=== PATIENT | female | born 1950 | race Caucasian/White ===

== ENCOUNTER 2016-06-16 13:32 | Emergency (ER) | payer MEDICARE ==
[2016-06-16 13:45] VITALS: BP 98/66
--- NOTE | 2016-06-16 15:00 | UC ---
Talib Middleton Billy, scribed for Vivian Rayo DO on 06/16/16 at 1405 . Abdominal Pain Female HPI - HPI Summary HPI Summary: Patient is a 66 year-old female with a history of bariatric surgery coming [place] [facility] of diffuse abdominal pain for the last 5 days. The pain radiates to her flanks bilaterally. Patient states that her pain started after having cantaloupe on 06/12/16. She also reports having nausea and dry heaves. Pain and nausea is worse with food and certain movements, but she is able to tolerate fluids. She did not have any BM since the onset of her symptoms until yesterday, when she had 3x loose stools. The first of those stools was described as black and tarry, followed by a green stool, and then yellow. She also feels somewhat lightheaded recently and has subjective fevers and chills. Denies any urinary symptoms, chest pain, or SOB. Patient is living at home with people who are Hep C positive. - History of Current Complaint Chief Complaint: UCAbdominalPain Stated Complaint: GASTRIC COMPLAINT Time Seen by Provider: 06/16/16 13:49 Hx Obtained From: Patient Onset/Duration: Gradual Onset, Lasting Days, Still Present Timing: Constant Severity Initially: Moderate Severity Currently: Moderate Pain Intensity: 10 - with deep palpation Pain Scale Used: 0-10 Numeric Location: Diffuse Radiates: Yes Radiates to: Back - Radiates to the back with deep palpation of the epigastrium. Character: Cramping, Dull, Sharp Aggravating Factor(s): Food, Movement Alleviating Factor(s): Nothing Associated Signs and Symptoms: Positive: Fever - subjective fever/chills, Constipation, Blood in Stool - black, tarry stool, Nausea - and dry heaves. Negative: Chest Pain, Urinary Symptoms Allergies/Adverse Reactions: Allergies Allergy/AdvReac Type Severity Reaction Status Date / Time Penicillins Allergy Unknown Verified 06/16/16 13:46 Reaction Details Sulfa Antibiotics Allergy Unknown Verified 06/16/16 13:46 Reaction Details Home Medications: Home Medications Acetaminophen 2 tab PO Q4HR 06/16/16 [History Confirmed 06/16/16] PMH/Surg Hx/FS Hx/Imm Hx Previously Healthy: Yes Endocrine History Of: Denies: Diabetes Cardiovascular History Of: Denies: Hypertension, Pacemaker/ICD Cancer History Of: Denies: Breast Cancer - Surgical History Surgical History: Yes Surgery Procedure, Year, and Place: TONSILS,APPENDIX,TOTAL HYSTERECTOMY, GALLBLADDER,BARIATRIC GASTRIC BYPASS - Family History Known Family History: Positive: Cardiac Disease Family History: Mother with breast cancer. Father had asthma, emphysema, and heart failure. - Social History Lives: With Family Alcohol Use: None Substance Use Type: None Smoking Status (MU): Never Smoked Tobacco Household Exposure Type: Cigarettes Review of Systems Constitutional: Fever, Chills Skin: Negative Eyes: Negative ENT: Negative Respiratory: Negative Cardiovascular: Negative Gastrointestinal: Abdominal Pain, Other - nausea, dry heaves; black, tarry stool Genitourinary: Negative Motor: Negative Neurovascular: Negative Musculoskeletal: Negative Neurological: Negative Psychological: Negative All Other Systems Reviewed And Are Negative: Yes Physical Exam Triage Information Reviewed: Yes Appearance: Well-Appearing, No Pain Distress, Well-Nourished Vital Signs: Initial Vital Signs Temp 98.1 F 06/16/16 13:37 Pulse 66 06/16/16 13:37 Resp 16 06/16/16 13:37 BP 98/66 06/16/16 13:37 Pulse Ox 98 06/16/16 13:37 Vital Signs Reviewed: Yes Eyes: Positive: Conjunctiva Clear. Negative: Discharge ENT: Positive: Normal ENT inspection Neck: Positive: Supple, Nontender Respiratory: Positive: Lungs clear, Normal breath sounds, No respiratory distress, No accessory muscle use Cardiovascular: Positive: RRR, No Murmur Abdomen Description: Positive: Soft, CVA Tenderness (R), Other: - Diffuse tenderness of the abdomen, right worse than left, but worst of all in the epigastrium and radiates to the back with deep palpation.. Negative: CVA Tenderness (L) Bowel Sounds: Positive: Present Musculoskeletal Exam: Normal Musculoskeletal: Positive: Strength Intact Neurological Exam: Normal Neurological: Positive: Alert Psychological Exam: Normal Psychological: Positive: Age Appropriate Behavior Skin Exam: Normal, Other - Warm, dry skin. Abd Pain Female Course/Dx - Differential Dx/Diagnosis Differential Diagnosis: Bowel Obstruction, Pancreatitis, Other - metabolic abnormality, gastroenteritis, food poisoning Provider Diagnoses: abd pain of unknown anand Discharge - Discharge Plan Condition: Stable Disposition: AGAINST MEDICAL ADVICE The documentation as recorded by the Talib pichardo Billy accurately reflects the service I personally performed and the decisions made by Girma mejia Michelle A, DO.
== END 2016-06-16 14:53 | disposition left against medical advice (07) ==
LOC: UCEAST 13:32
DX: R10.84 Generalized abdominal pain (principal); R50.9 Fever, unspecified; K59.00 Constipation, unspecified; K92.1 Melena; R11.0 Nausea; Z98.84 Bariatric surgery status; Z90.49 Acquired absence of other specified parts of digestive tract; Z88.0 Allergy status to penicillin; Z88.2 Allergy status to sulfonamides; Z77.22 Contact with and (suspected) exposure to environmental tobacco smoke (acute) (chronic)
CPT/HCPCS: 81003; 99212; G0463

== ENCOUNTER 2016-06-16 15:06 | Emergency (ER) | payer MEDICARE ==
[2016-06-16 19:46] LABS: Hematocrit 40 % (35-47); Hemoglobin 12.9 g/dl (12.0-16.0); Mean Corpuscular HGB Conc 32 g/dl (31-36); Mean Corpuscular Hemoglobin 29 pg (27-31); Mean Corpuscular Volume 89 fL (80-97); Mean Platelet Volume 9 um3 (7.4-10.4); Red Blood Count 4.49 10^6/ul (4.0-5.4); Red Cell Distribution Width 14 % (10.5-15); White Blood Count 5.9 10^3/ul (3.5-10.8)
[2016-06-16 19:56] LABS: Albumin 3.6 g/dL (3.2-5.2); BUN/Creatinine Ratio 25.4 (8-20); C Reactive Protein 1.53 mg/L (< 5.00); Calcium 8.6 mg/dL (8.6-10.3); EGFR African American 130.4 (>60); EGFR Non-African American 101.4 (>60); Globulin 2.1 g/dL (2-4); Potassium 3.2 mmol/L (3.5-5.0); Total Bilirubin 0.6 mg/dL (0.2-1.0); Total Protein 5.7 g/dL (6.4-8.9)
[2016-06-16] MEDS ORDERED: Iohexol 300* (CONTRAST) 10 ML SDV IV ONE (20:22)
--- NOTE | 2016-06-16 22:28 | RAD ---
INDICATION: Mid and lower abdominal pain with radiation to the back. Post appendectomy, hysterectomy, cholecystectomy, gastric bypass. COMPARISON: July 29, 2004 CT. TECHNIQUE: Multidetector CT images were obtained from the lung bases to the ischial tuberosities with 77 mL Omnipaque 300 IV and oral contrast. Multiplanar reformation. REPORT: Small dependent pleural effusions and mild dependent atelectasis. Diffuse fatty infiltration of the liver. No focal hepatic lesions evident. Artifactual filling defect in the central portal veins due to early phase of contrast enhancement. Post cholecystectomy. Negative for biliary dilatation. Unremarkable pancreas. Low suspicion 5 mm subcapsular hypodensity at the spleen most consistent with a benign cyst or potentially a small splenic infarct. Postsurgical change of Zandra-en-Y gastric bypass. Enteric contrast extends to the rectum. No suspicious CT finding of the upper GI, small bowel, or colon. Negative for ascites, free air, hernias. Normal adrenal glands. Unremarkable kidneys with symmetric nephrograms and pyelograms. Unremarkable ureters and distended urinary bladder. Multiple pelvic phleboliths. Post hysterectomy. Unremarkable adnexal regions. Multiple upper abdominal small bowel mesenteric lymph nodes visualized measuring up to 7 mm short axis diameter. In addition the small bowel mesentery is mildly increased in density throughout. Normal diameter abdominal aorta and iliac arteries with mild calcific plaque. Normal variant duplicated inferior vena cava below the level of the renal vessels. Negative for suspicious osseous lesions. IMPRESSION: 1. Fatty infiltration of the liver. 2. Post cholecystectomy. 3. Post Zandra-en-Y gastric bypass. Negative for bowel obstruction or other acute abnormality of the bowel. 4. Nonspecific new multiple subcentimeter short axis lymph nodes and edema in the small bowel mesentery. Consider mesenteric panniculitis or possibly early lymphoma. 5. Negative for obstructive uropathy. 6. Post-hysterectomy. No suspicious adnexal region lesions evident7. 7. Bilat. small dependent pleural effusions.
[2016-06-16] MEDS ORDERED: HYDROmorphone* 1 MG/ML 1 ML SYR IV ONE (23:02)
[2016-06-16] MEDS ORDERED: Ondansetron INJ* 2 MG/ML VIAL IV ONE (23:02)
[2016-06-16] MEDS ORDERED: Al Hydrox/Mg Hydrox/Simet LIQ* 30 ML UDC PO ONE (23:26)
[2016-06-16] MEDS ORDERED: Lidocaine 2% VISCOUS* 15 ML UDC PO ONE (23:26)
[2016-06-16] MEDS ORDERED: HYDROcodone/ACETAMIN 5-325 MG* 1 TAB PO ONE (23:45)
[2016-06-17 00:02] VITALS: BP 150/75
--- NOTE | 2016-06-19 13:49 | ED ---
Vikas Middleton Benjamin, scribed for Nam Mario MD on 06/16/16 at 2037 . Abdominal Pain/Female - HPI Summary HPI Summary: 66yo female transferred from for abdominal pain since . On , pt had food, which pt suspects might have gone bad. 15-20 minutes after eating, pt started to have diffuse abdominal pain. Since then, pt has been in pain as soon as she eats, with dry heaves and unable to pass gas. Since then, pt had watery BM, which were at first black, then olive green, and now yellow in color. Hx of gastric bypass on 2003. - History of Current Complaint Chief Complaint: EDAbdPain Stated Complaint: ABD AND BACK PAIN-[facility] XFER Time Seen by Provider: 06/16/16 19:18 Hx Obtained From: Patient Onset/Duration: Gradual Onset, Lasting Days, Still Present Timing: Constant Severity Initially: Moderate Severity Currently: Moderate Pain Intensity: 9 Pain Scale Used: 0-10 Numeric Location: Diffuse Radiates: No Aggravating Factor(s): Food Alleviating Factor(s): Nothing Associated Signs and Symptoms: Positive: Nausea, Diarrhea, Other: - dry heaves, gassy stomach Allergies/Adverse Reactions: Allergies Allergy/AdvReac Type Severity Reaction Status Date / Time Hydromorphone [From Dilaudid] Allergy Agitation Verified 06/19/16 11:34 Penicillins Allergy Unknown Verified 06/16/16 15:12 Reaction Details Sulfa Antibiotics Allergy Unknown Verified 06/16/16 15:12 Reaction Details PMH/Surg Hx/FS Hx/Imm Hx Endocrine/Hematology History: Denies: Hx Diabetes Cardiovascular History: Denies: Hx Hypertension, Hx Pacemaker/ICD Musculoskeletal History: Denies: Hx Osteoporosis Sensory History: Denies: Hx Hearing Aid Psychiatric History: Denies: Hx Panic Disorder - Cancer History Hx Chemotherapy: No Hx Radiation Therapy: No - Surgical History Surgery Procedure, Year, and Place: TONSILS,APPENDIX,TOTAL HYSTERECTOMY, GALLBLADDER,BARIATRIC GASTRIC BYPASS Infectious Disease History: No Infectious Disease History: Denies: History Other Infectious Disease, Traveled Outside the [place] in Last 30 Days - Family History Known Family History: Positive: None, Cardiac Disease Family History: Mother with breast cancer. Father had asthma, emphysema, and heart failure. - Social History Occupation: Employed Full-time Lives: With Family Alcohol Use: None Substance Use Type: Reports: None Smoking Status (MU): Never Smoked Tobacco Review of Systems Constitutional: Negative Eyes: Negative ENT: Negative Cardiovascular: Negative Respiratory: Negative Positive: Abdominal Pain, Vomiting, Nausea Genitourinary: Negative Musculoskeletal: Negative Skin: Negative Neurological: Negative Psychological: Normal All Other Systems Reviewed And Are Negative: Yes Physical Exam Triage Information Reviewed: Yes Vital Signs On Initial Exam: Initial Vitals Temp Pulse Resp BP Pulse Ox 98.1 F 64 16 108/63 98 06/16/16 15:12 06/16/16 15:12 06/16/16 15:12 06/16/16 15:12 06/16/16 15:12 Vital Signs Reviewed: Yes Appearance: Positive: Well-Appearing, No Pain Distress, Well-Nourished Skin: Positive: Warm, Skin Color Reflects Adequate Perfusion, Dry Head/Face: Positive: Normal Head/Face Inspection Eyes: Positive: Normal ENT: Positive: Normal ENT inspection Neck: Positive: Supple, Nontender Respiratory/Lung Sounds: Positive: Clear to Auscultation, Breath Sounds Present Cardiovascular: Positive: RRR, Pulses are Symmetrical in both Upper and Lower Extremities Abdomen Description: Positive: Nontender, Soft Bowel Sounds: Positive: Present Musculoskeletal: Positive: Normal, Strength/ROM Intact Neurological: Positive: Sensory/Motor Intact, Alert, Oriented to Person Place, Time, CN Intact II-III Psychiatric: Positive: Affect/Mood Appropriate - Tressa Coma Scale Coma Scale Total: 15 Diagnostics - Vital Signs Vital Signs Temp Pulse Resp BP Pulse Ox 06/16/16 17:50 63 16 114/65 96 06/16/16 16:42 97.8 F 77 16 103/65 98 06/16/16 15:12 98.1 F 64 16 108/63 98 - Laboratory Lab Results: Lab Results 06/16/16 06/16/16 Range/Units 17:15 17:15 WBC 5.9 (3.5-10.8) 10^3/ul RBC 4.49 (4.0-5.4) 10^6/ul Hgb 12.9 (12.0-16.0) g/dl Hct 40 (35-47) % MCV 89 (80-97) fL MCH 29 (27-31) pg MCHC 32 (31-36) g/dl RDW 14 (10.5-15) % Plt Count 173 (150-450) 10^3/ul MPV 9 (7.4-10.4) um3 Neut % (Auto) 54.3 (38-83) % Lymph % (Auto) 35.8 (25-47) % Ellis % (Auto) 9.0 (1-9) % Eos % (Auto) 0.6 (0-6) % Baso % (Auto) 0.3 (0-2) % Absolute Neuts (auto) 3.2 (1.5-7.7) 10^3/ul Absolute Lymphs (auto) 2.1 (1.0-4.8) 10^3/ul Absolute Monos (auto) 0.5 (0-0.8) 10^3/ul Absolute Eos (auto) 0 (0-0.6) 10^3/ul Absolute Basos (auto) 0 (0-0.2) 10^3/ul Absolute Nucleated RBC 0.01 10^3/ul Nucleated RBC % 0.1 Sodium 140 (133-145) mmol/L Potassium 3.2 L (3.5-5.0) mmol/L Chloride 104 (101-111) mmol/L Carbon Dioxide 30 (22-32) mmol/L Anion Gap 6 (2-11) mmol/L BUN 15 (6-24) mg/dL Creatinine 0.59 (0.51-0.95) mg/dL Est GFR ( Amer) 130.4 (>60) Est GFR (Non-Af Amer) 101.4 (>60) BUN/Creatinine Ratio 25.4 H (8-20) Glucose 89 (70-100) mg/dL Calcium 8.6 (8.6-10.3) mg/dL Total Bilirubin 0.60 (0.2-1.0) mg/dL AST 26 (13-39) U/L ALT 30 (7-52) U/L Alkaline Phosphatase 62 (34-104) U/L C-Reactive Protein 1.53 (< 5.00) mg/L Total Protein 5.7 L (6.4-8.9) g/dL Albumin 3.6 (3.2-5.2) g/dL Globulin 2.1 (2-4) g/dL Albumin/Globulin Ratio 1.7 (1-3) Lipase 27 (11.0-82.0) U/L Result Diagrams: 06/16/16 17:15 06/16/16 17:15 Lab Statement: Any lab studies that have been ordered have been reviewed, and results considered in the medical decision making process. - CT A/P CTW CT Interpretation: Positive (See Comments) - IMPRESSION: 1. Fatty infiltration of the liver. 2. Post cholecystectomy. 3. Post Zandra-en-Y gastric bypass. Negative for bowel obstruction or other acute abnormality of the bowel. 4. Nonspecific new multiple subcentimeter short axis lymph nodes and edema in the small bowel mesentery. Consider mesenteric panniculitis or possibly early lymphoma. 5. Negative for obstructive uropathy. 6. Post-hysterectomy. No suspicious adnexal region lesions evident7. 7. Bilat. small dependent pleural effusions. CT Interpretation Completed By: Radiologist Abdominal Pain Fem Course/Dx - Course Course Of Treatment: Ms. Centeno presented with a couple days of diffuse abdominal pain especially after eating. She is a decade S/P Zandra-en-Y but has not had any problems previously. Labs were normal and a CT showed mesenteric panniculitis. I was about to D/C her when she began to experience worse pain ( she had just eaten) and I ordered some additional pain medications. - Diagnoses Provider Diagnoses: Mesenteric panniculitis - Provider Notifications Discussed Care Of Patient With: Dr. De Anda at change of shift Discharge - Discharge Plan Condition: Stable Disposition: HOME Prescriptions: HYDROcodone/ACETAMIN 5-325 MG* [Cornucopia 5-325 TAB*] 1 tab PO Q6H PRN #20 tab MDD 4 PRN Reason: Pain Patient Education Materials: Abdominal Pain (ED) Referrals: Joann Boo MD [Primary Care Provider] - Teo Valencia MD [Medical Doctor] - The documentation as recorded by the Vikas pichardo Benjamin accurately reflects the service I personally performed and the decisions made by me, Nam Mario MD.
== END 2016-06-17 00:45 | disposition home or self-care (01) ==
LOC: ED 15:06
DX: K65.4 Sclerosing mesenteritis (principal); R19.7 Diarrhea, unspecified; R11.2 Nausea with vomiting, unspecified; R10.9 Unspecified abdominal pain
CPT/HCPCS: 36415; 74177; 80053; 83605; 83690; 85025; 86140; 96374; 96375; 99283; A9270-GY; J1170; J2405; Q9967

== ENCOUNTER 2016-06-19 13:00 | Observation (INO) | payer MEDICARE ==
[~2016-06-19 13:00] MED LIST: Bupivacaine 0.5% W/EPI SDV* 30 ML VIAL ONE; Clindamycin 900 MG IVPREMIX(* 900 MG/50 ML SDV IV ONE; Dexamethasone IV* 4 MG/ML 1 ML (4 MG) ONE; Lidocaine 2% PF* 5 ML VIAL ONE; Ondansetron INJ* 2 MG/ML VIAL ONE; Propofol* 10 MG/ML 20 ML BTL IV PUSH ONE; Scopolamine 1.5 mg* PATCH ONE; Succinylcholine* 20 MG/ML 10 ML VIAL ONE; fentaNYL* 50 MCG/ML 2 ML VIAL (100 MCG VIAL) ONE
[2016-06-19] MEDS ORDERED: Atracurium* 10 MG/ML 10 ML VIAL ONE (13:52)
[2016-06-19] MEDS ORDERED: DiMENhydriNATE IV* 50 MG/ML VIAL IV PUSH PRN (14:00)
[2016-06-19] MEDS ORDERED: fentaNYL* 50 MCG/ML 2 ML VIAL (100 MCG VIAL) IV PRN (14:00)
[2016-06-19] MEDS ORDERED: Morphine INJ* 2 MG/ML 1 ML SYRINGE IV PRN (14:00)
[2016-06-19] MEDS ORDERED: Ketorolac INJ* 30 MG/ML 1 ML VIAL IV PRN (14:00)
[2016-06-19] MEDS ORDERED: Morphine INJ* 10 MG/ML 1 ML SYRINGE ONE (14:38)
[2016-06-19] MEDS ORDERED: Edrophonium Chloride* 10 MG/ML 15 ML VIAL ONE (15:12)
[2016-06-19] MEDS ORDERED: Atropine 1MG/ML INJ* 1 ML VIAL ONE (15:12)
[2016-06-19] MEDS ORDERED: Ondansetron INJ* 2 MG/ML VIAL IV PRN (16:10)
--- NOTE | 2016-06-19 16:37 | SURGPN ---
Brief Operative Note - Surgery Procedures: PREOOP DX: VOLVULUS, INTERNAL HERNIA, S/P LRYGB POSTOP DX: SAME AND COLONIC MALROTATION PROC: DX LAP;EXLAP; REDUCTION AND REPAIR OF INTERNAL HERNIA AND R COLON PEXY SURG: MECENAS ASSIST: NONE ANES: GET; BYLEBYL EBL: 150 ML IVF: 2.2 L LR SPEC: NONE DRAIN/COMPL: NONE COND: STABLE, EXTUBATED; TO PACU FINDINGS: INTERNAL HERNIA AT THE JEJUNOJEJUNOSTOMY WITH R COLON HERNIATION ALONG WITH SMALL BOWEL. MARLEN LIMB ORIENTED TO LEFT SIDE OF ABDOMEN.
[2016-06-19] MEDS ORDERED: Ketorolac INJ* 30 MG/ML 1 ML VIAL ONE (16:49)
[2016-06-19] MEDS ORDERED: Morphine PCA ADULT* 5 MG/ML 30 ML PCA SCH (17:00)
[2016-06-19] MEDS ORDERED: Morphine PCA ADULT* 5 MG/ML 30 ML ONE (18:00)
[2016-06-19] MEDS ORDERED: NS 0.9% 1000 ML* 1,000 ML IV ONE (20:15)
[2016-06-19 22:49] LABS: Hematocrit 32 % (35-47); Hemoglobin 10.2 g/dl (12.0-16.0)
[2016-06-19] MEDS: Ketorolac INJ* 15 MG/ML 1 ML VIAL IV PUSH SCH (23:27)
[2016-06-20] MEDS ORDERED: NS 0.9% 1000 ML* 1,000 ML IV ONE ×3 (03:15→14:46)
[2016-06-20 04:55] LABS: Hematocrit 28 % (35-47); Hemoglobin 9.1 g/dl (12.0-16.0); Mean Corpuscular HGB Conc 33 g/dl (31-36); Mean Corpuscular Hemoglobin 29 pg (27-31); Mean Corpuscular Volume 89 fL (80-97); Mean Platelet Volume 8 um3 (7.4-10.4); Red Blood Count 3.14 10^6/ul (4.0-5.4); Red Cell Distribution Width 14 % (10.5-15); White Blood Count 12.7 10^3/ul (3.5-10.8)
[2016-06-20 04:59] LABS: Add Diff/Slide Review? Slide Review Added; Comments Flag Yes
[2016-06-20 05:13] LABS: BUN/Creatinine Ratio 32.7 (8-20); Calcium 7.3 mg/dL (8.6-10.3); EGFR African American 150.8 (>60); EGFR Non-African American 117.3 (>60); Potassium 3.9 mmol/L (3.5-5.0)
[2016-06-20] MEDS: Ketorolac INJ* 15 MG/ML 1 ML VIAL IV PUSH SCH ×4 (05:24→23:17)
[2016-06-20 09:20] LABS: Albumin 2.6 g/dL (3.2-5.2); Calcium 7.3 mg/dL (8.6-10.3); EGFR African American 157.8 (>60); EGFR Non-African American 122.7 (>60); Globulin 1.4 g/dL (2-4); Magnesium 1.6 mg/dL (1.9-2.7); Phosphorus 3.8 mg/dL (2.5-5.0); Potassium 3.9 mmol/L (3.5-5.0); Total Bilirubin 0.6 mg/dL (0.2-1.0)
[2016-06-20] MEDS ORDERED: oxyCODONE/Acetamin 5/325 MG* TAB PO PRN (11:22)
[2016-06-20] MEDS ORDERED: HYDROmorphone* 1 MG/ML 1 ML SYR IV SLOW PU PRN (11:22)
[2016-06-20] MEDS ORDERED: Magnesium Sulfate 2 GM IV* 2 GM/50 ML BAG IVPB ONE (11:23)
--- NOTE | 2016-06-20 11:32 | SURGPN ---
Subjective - Introduction -: Reports doing much better today, denies any pain. Has not used her ELECTRO TECH at all. Tolerating clear liquids well. No N/V, fever or chills. No flatus yet. - Medications -: Active Medications Generic Name Dose Route Start Last Admin Trade Name Maria Isabel PRN Reason Stop Dose Admin Hydromorphone HCl 0.5 mg 06/20/16 11:22 Dilaudid Iv* IV SLOW PU Q4H PRN PAIN Lactated Ringer's 1,000 mls @ 150 mls/hr 06/19/16 17:00 06/20/16 10:29 Lactated Ringers 1000 Ml Bag* IV 150 mls/hr .per rate MALINDA Administration Morphine Sulfate 30 mls @ 0 mls/hr 06/19/16 17:00 Morphine Cloth Spreader [employer]ing Adult* 5 Mg/Ml ELECTRO TECH .change Q24H MALINDA Protocol Per Protocol Magnesium Sulfate 2 gm in 50 mls @ 50 mls/hr 06/20/16 11:23 Magnesium Sulfate 2 Gm Iv* IVPB 06/20/16 12:22 ONCE ONE Ketorolac Tromethamine 15 mg 06/19/16 23:00 06/20/16 10:29 Toradol Inj* IV PUSH 15 mg Q6H MALINDA Administration Ondansetron HCl 4 mg 06/19/16 16:10 Zofran Inj* IV Q4H PRN NAUSEA/VOMITING Oxycodone/Acetaminophen 1 tab 06/20/16 11:22 Percocet 5/325 Tab* PO Q4H PRN PAIN Objective - Objective -: Awake and alert, comfortable on bed, in NAD. - Intake and Output -: Intake & Output 06/18/16 06/19/16 06/20/16 06/21/16 06:59 06:59 06:59 06:59 Intake Total 6630 997 Output Total 575 Balance 6055 997 Weight 126 lb Intake: IV Fluids 6480 997 LR 3480 997 NS bolus 3000 Oral 150 Output: Eason 425 Estimated Blood Loss 150 Surgical Physical Exam - Comments -: VSS, afebrile Abdomen soft, NT, ND. Dressing clean and dry. No guarding or rebound. Ext no edema Labs noted, hypomagnesemia Assessment and Plan - Assessment -: A 66 y/o female, s/p exploratory laparotomy with repair of internal hernia, POD# 1, doing very well. - Plan Additional Comments: D/C ELECTRO TECH Ambulate as tolerated. Await bowel function. Hypomagnesemia, replace Mg Check labs tomorrow. Advance to full liquid diet later today.
--- NOTE | 2016-06-20 12:01 | OP ---
DATE OF OPERATION: 06/19/16 - ROOM #340 DATE OF : 46 SURGEON: Teo Valencia MD ADVOCACY DIRECTOR: None. ANESTHESIOLOGIST: Dr. Bonilla. ANESTHESIA: General endotracheal. PRE-OP DIAGNOSIS: Volvulus with internal hernia status post laparoscopic Zandra- en-Y gastric bypass. POST-OP DIAGNOSES: Volvulus with internal hernia status post laparoscopic Zandra- en-Y gastric bypass and colonic malrotation. OPERATIVE PROCEDURE: Diagnostic laparoscopy, exploratory laparotomy, reduction repair of internal hernia with right colon pexy. ESTIMATED BLOOD LOSS: 150 mL. IV FLUIDS: 2.2 L of crystalloid. SPECIMEN: None. DRAINS: None. COMPLICATIONS: None. COUNTS: Instrument, needle, and sponge counts correct. DESCRIPTION OF PROCEDURE: The patient was brought to the operating room, placed on the table supine. Sequential compression devices were placed on both lower extremities. General anesthesia was administered. Her abdomen was prepped and draped in the usual sterile fashion. She received appropriate intravenous antibiotics. A time-out was performed. Local anesthetic was infiltrated into the skin and soft tissue prior to making each incision. A transumbilical access using the Veress needle was performed to insufflate carbon dioxide to a pressure of 15 mmHg. Subsequently, a 5-mm optical trocar was placed in the left upper quadrant and under direct visualization, 5-mm trocars were placed in the right upper quadrant and infraumbilical region. Inspection with laparoscope revealed adhesions of omentum to the anterior abdominal wall. Lysis of adhesions was performed using a sharp and blunt dissection. After freeing the omentum, inspection revealed evidence of internal herniation of the small bowel. It was difficult to assess exactly where the herniation was occurring and it appeared that the right colon was herniated to the left side of the abdomen. Upon multiple attempts to reduce the intestinal herniation without success, it was deemed dangerous to pursue it further and therefore laparotomy was performed. Midline laparotomy was created and retractor was placed. Omentum was freed additionally from anterior abdominal wall and from the falciform ligament. Ligation of bleeding portions of the omentum and cauterization was used to achieve hemostasis there. There appeared to be herniation of the small bowel around the Zandra limb with orientation of the Zandra limb on the left side of the abdomen. The bowel was reduced; however, there appeared to be herniation through a jejunojejunostomy, a mesenteric defect as well, and after reducing this, the bowel was finally re-oriented. It was noted that the right colon was free with tendency for the right colon to migrate to the left side of the abdomen. The small bowel was run from the ileocecal valve proximally to the jejunojejunostomy and the orientation of the jejunojejunostomy was such that the biliopancreatic limb was on the right side of the abdomen and that the Zandra limb was oriented on the left side of the abdomen. There was a hernia defect as noted at the jejunojejunostomy site and space between the Zandra limb mesentery and transverse colon on the left side. The bowel did appear to be viable. There was a serosal tear noted on the left side of the Zandra limb which was oversewn with 2-0 silk. The pexy of the biliopancreatic limb to the Zandra limb itself was performed with interrupted 2-0 silk, proceeding with successful closure of the retro-alimentary limb space. Additionally, interrupted 3-0 silk' s were used to close the jejunojejunostomy defect. The pexy of the right colon was performed with interrupted 2-0 silk's reducing the mobility of the right colon by pexy to the lateral parietal peritoneum and putting sequentials down to the right pelvis. The appendix appeared to be surgically absent. The inspection of the ascending, transverse, and descending colon revealed them all to be viable. There was bleeding still from the omentum which was subsequently controlled with oversewing with 3-0 silk's and with cautery. Copious lavage of the abdomen was performed until clear, and once hemostasis was assured, the midline laparotomy was closed with #1 Polysorb running. The wound was irrigated. Hemostasis was assured in the subcutaneous tissues and the skin incisions were closed with reji and dressings applied. The patient tolerated the procedure well. She was extubated uneventfully. She was transferred to the recovery room in stable condition. CC: Joann Boo MD* [id number]/[facility] #: [id number] MTDD
[2016-06-21] MEDS: Ketorolac INJ* 15 MG/ML 1 ML VIAL IV PUSH SCH ×4 (04:55→22:55)
[2016-06-21 07:26] LABS: Hematocrit 25 % (35-47); Hemoglobin 8.2 g/dl (12.0-16.0); Mean Corpuscular HGB Conc 33 g/dl (31-36); Mean Corpuscular Hemoglobin 29 pg (27-31); Mean Corpuscular Volume 89 fL (80-97); Mean Platelet Volume 9 um3 (7.4-10.4); Red Blood Count 2.85 10^6/ul (4.0-5.4); Red Cell Distribution Width 15 % (10.5-15); White Blood Count 7.8 10^3/ul (3.5-10.8)
[2016-06-21 07:38] LABS: Calcium 7.4 mg/dL (8.6-10.3); EGFR African American 157.8 (>60); EGFR Non-African American 122.7 (>60); Potassium 3.2 mmol/L (3.5-5.0)
--- NOTE | 2016-06-21 08:31 | PN ---
Progress Note - Progress Note Note: Surgery Ms. Centeno reports she is tolerating full liquids. She has passed flatus, no BM yet. She denies pain. Vital Signs 06/20/16 06/20/16 06/20/16 08:34 08:35 09:00 Temperature Pulse Rate Respiratory 16 Rate Blood Pressure 75/40 79/43 (mmHg) O2 Sat by Pulse 98 Oximetry 06/20/16 06/20/16 06/20/16 11:00 11:22 15:24 Temperature 98.2 F 98.6 F Pulse Rate 64 64 Respiratory 16 16 18 Rate Blood Pressure 73/42 77/41 (mmHg) O2 Sat by Pulse 97 98 93 Oximetry 06/20/16 06/20/16 06/20/16 16:00 19:20 19:22 Temperature Pulse Rate Respiratory 14 14 Rate Blood Pressure (mmHg) O2 Sat by Pulse 93 Oximetry 06/20/16 06/20/16 06/21/16 19:54 23:25 03:37 Temperature 99.7 F 98.4 F 98.1 F Pulse Rate 70 67 64 Respiratory 17 17 17 Rate Blood Pressure 82/44 77/44 91/43 (mmHg) O2 Sat by Pulse 93 94 92 Oximetry Abd: good BS, soft, non-tender except near incision. INcision: Clean and dry, reji intact. Intake & Output 06/20/16 06/21/16 06/21/16 22:59 06:59 14:59 Intake Total 4920 Output Total 250 250 Balance 4670 -250 Intake: IV Fluids 3930 LR 1020 NS bolus 950 Oral 990 Output: Eason 250 250 Laboratory Results - last 24 hr 06/20/16 06/21/16 06/21/16 04:42 07:05 07:05 WBC 7.8 RBC 2.85 L Hgb 8.2 L Hct 25 L MCV 89 MCH 29 MCHC 33 RDW 15 Plt Count 154 MPV 9 Neut % (Auto) 70.9 Lymph % (Auto) 21.4 L [place] % (Auto) 7.0 Eos % (Auto) 0.3 Baso % (Auto) 0.4 Absolute Neuts (auto) 5.5 Absolute Lymphs (auto) 1.7 Absolute Monos (auto) 0.5 Absolute Eos (auto) 0 Absolute Basos (auto) 0 Absolute Nucleated RBC 0 Nucleated RBC % 0 Sodium 141 142 Potassium 3.9 3.2 L Chloride 108 113 H Carbon Dioxide 27 27 Anion Gap 6 2 BUN 18 9 Creatinine 0.50 L 0.50 L Est GFR ( Amer) 157.8 157.8 Est GFR (Non-Af Amer) 122.7 122.7 BUN/Creatinine Ratio 36.0 H 18.0 Glucose 114 H 91 Calcium 7.3 L 7.4 L Phosphorus 3.8 Magnesium 1.6 L 2.0 Total Bilirubin 0.60 AST 33 ALT 30 Alkaline Phosphatase 44 Total Protein 4.0 L Albumin 2.6 L Globulin 1.4 L Albumin/Globulin Ratio 1.9 Prealbumin 12 L Triglycerides 50 Cholesterol 99 A/P: POD#2 s/p lap repair internal hernia, doing well, will advance diet, encourage ambulation. Will replete K+.
[2016-06-21] MEDS: Potassium Chloride LIQUID* 20 MEQ PACKET PO SCH (09:23)
[2016-06-22] MEDS: Ketorolac INJ* 15 MG/ML 1 ML VIAL IV PUSH SCH ×2 (04:25→11:14)
[2016-06-22 08:40] VITALS: BP 105/58
[2016-06-22] MEDS: Potassium Chloride LIQUID* 20 MEQ PACKET PO SCH (09:10)
--- NOTE | 2016-06-22 10:35 | PN ---
Progress Note - Progress Note Note: Surgery Ms. Centeno feels good enough to go home, and is anxious to be home. She has ambulated and tolerated diet. Vital Signs 06/21/16 06/21/16 06/21/16 12:04 16:00 16:25 Temperature 98.5 F 98.2 F Pulse Rate 75 67 Respiratory 18 17 Rate Blood Pressure 99/55 99/56 (mmHg) O2 Sat by Pulse 96 98 98 Oximetry 06/21/16 06/21/16 06/21/16 18:12 19:37 20:05 Temperature 98.3 F Pulse Rate 77 Respiratory 16 19 Rate Blood Pressure 86/49 (mmHg) O2 Sat by Pulse 98 98 98 Oximetry 06/22/16 06/22/16 06/22/16 00:41 03:29 04:31 Temperature 98.0 F 98.0 F Pulse Rate 70 60 Respiratory 18 16 Rate Blood Pressure 89/52 81/49 96/52 (mmHg) O2 Sat by Pulse 94 96 Oximetry 06/22/16 06/22/16 06/22/16 07:51 08:00 08:35 Temperature 98.0 F Pulse Rate 64 Respiratory 18 18 Rate Blood Pressure 98/52 105/58 (mmHg) O2 Sat by Pulse 98 98 Oximetry Abd: good BS, soft, non-tender Incision: clean and dry Intake & Output 06/21/16 06/22/16 06/22/16 22:59 06:59 14:59 Intake Total 2316 300 Output Total 325 500 200 Balance 1990 Intake: IV Fluids 1396 LR 1396 Oral 920 300 Output: Urine 100 500 200 Eason 225 A/P: Doing well. If hospice physician is that she is independent, will d/c home. CLFoster
== END 2016-06-22 12:00 | disposition home or self-care (01) ==
LOC: OR 13:00 → INTOOBSV 17:52 → SSU 17:52
PROVIDERS: ADMIT Surgery; ATTEND Surgery
PROC: 0WQF0ZZ Repair Abdominal Wall, Open Approach (ICD-10-PCS; principal; 2016-06-19 12:30)
DX: K56.2 Volvulus (principal); K46.9 Unspecified abdominal hernia without obstruction or gangrene; Q43.3 Congenital malformations of intestinal fixation; Z98.84 Bariatric surgery status; F32.9 Major depressive disorder, single episode, unspecified; F41.9 Anxiety disorder, unspecified; Z88.2 Allergy status to sulfonamides; Z88.5 Allergy status to narcotic agent; Z79.899 Other long term (current) drug therapy
CPT/HCPCS: 36415; 80048; 80053; 82465; 83735; 84100; 84134; 84478; 85014; 85018; 85025; 94760; 96374; 96375; 96376; A9270-GY; G0378; J0330; J0461; J1100; J1885; J2270; J2405; J2704; J3010

== ENCOUNTER 2017-09-24 12:36 | Emergency (ER) | payer MEDICARE ==
--- NOTE | 2017-09-24 12:48 | UC ---
Respiratory Complaint HPI - HPI Summary HPI Summary: 67 yo female presents with cough for the last 1.5 weeks. She tells me that about 1.5 weeks ago she was at her aunt's house who got a new couch. This cough had previous owners who had cats. This caused allergies, watery eyes, scratchy throat, and runny nose to pt. She has been taking daniel with good relief of those symptoms - but feels that her cough has worsened. Over the last 2-3 days has felt more tired and "chills", but has not taken her temperature. Denies fever, sore throat, SOB, chest pain, abdominal pain, n/v. - History of Current Complaint Chief Complaint: UCGeneralIllness Stated Complaint: COUGH,CHILLS Time Seen by Provider: 09/24/17 12:48 Hx Obtained From: Patient Onset/Duration: Gradual Onset Severity Initially: Moderate Severity Currently: Severe Pain Intensity: 7 Pain Scale Used: 0-10 Numeric Character: Cough: Nonproductive - Allergies/Home Medications Allergies/Adverse Reactions: Allergies Allergy/AdvReac Type Severity Reaction Status Date / Time hydromorphone [From Dilaudid] Allergy aggitation Verified 09/24/17 12:46 Penicillins Allergy Rash Verified 09/24/17 12:46 Sulfa (Sulfonamide Allergy Rash Verified 09/24/17 12:46 Antibiotics) PMH/Surg Hx/FS Hx/Imm Hx - Additional Past Medical History Additional PMH: None Previously Healthy: Yes - Surgical History Surgical History: Yes Surgery Procedure, Year, and Place: TONSILS,APPENDIX,TOTAL HYSTERECTOMY, GALLBLADDER,BARIATRIC GASTRIC BYPASS - Family History Known Family History: Positive: None, Cardiac Disease Family History: Mother with breast cancer. Father had asthma, emphysema, and heart failure. - Social History Occupation: Retired Lives: With Family Alcohol Use: None Substance Use Type: None Smoking Status (MU): Never Smoked Tobacco Household Exposure Type: Cigarettes - Immunization History Most Recent Influenza Vaccination: 02/2016 Most Recent Pneumonia Vaccination: within 10 years Review of Systems Constitutional: Chills, Fatigue Skin: Negative Eyes: Negative ENT: Negative Respiratory: Cough Cardiovascular: Negative Gastrointestinal: Negative Neurovascular: Negative Neurological: Negative Psychological: Negative All Other Systems Reviewed And Are Negative: Yes Physical Exam - Summary Physical Exam Summary: GENERAL: NAD. WDWN. No pain distress. SKIN: No rashes, sores, lesions, or open wounds. HEENT: Head: AT/NC Eyes: Conjunctiva clear without inflammation or discharge. Ears: Hearing grossly normal. TMs intact, no bulging, erythema, or edema. Nose: Nasal mucosa pink and moist. NTTP maxillary and frontal sinus. Throat: Posterior oropharynx without exudates, erythema, or tonsillar enlargement. Uvula midline. NECK: Supple. Nontender. No lymphadenopathy. CHEST: Moderate wheezing throughout. Crackles right lung. No accessory muscle use. Breathing comfortably and in no distress. CV: RRR. Without m/r/g. Pulses intact. Brisk cap refill. NEURO: Alert. CN II-XII grossly intact. PSYCH: Age appropriate behavior. Triage Information Reviewed: Yes Vital Signs: Initial Vital Signs Temp 98 F 09/24/17 12:42 Pulse 99 09/24/17 12:42 Resp 16 09/24/17 12:42 BP 106/66 09/24/17 12:42 Pulse Ox 99 09/24/17 12:42 Diagnostic Evaluation - Laboratory O2 Sat by Pulse Oximetry: 99 Re-Evaluation - Re-Evaluation First Eval Re-Evaluation Time: 13:41 Change: Improved Comment: Duoneb s/p. Improved work of breathing and less coughing. Lung sounds slightly improved. Respiratory Course/Dx - Course Course Of Treatment: CXR: IMPRESSION: NODULAR RIGHT MIDDLE LOBE INFILTRATE, RECOMMEND FOLLOW-UP CHEST X-RAYS TO RESOLUTION. Duoneb: Improvement s/p. Rx for Levaquin, albuterol, and tessalon. Rest and drink lots of fluids. F/u with PCP in 4-6 weeks for recheck. - Differential Dx/Diagnosis Provider Diagnoses: RML PNA Discharge - Sign-Out/Discharge Documenting (check all that apply): Patient Departure - Discharge Plan Condition: Stable Disposition: HOME Prescriptions: Albuterol HFA INHALER* [Ventolin HFA Inhaler*] 1 puff INH Q6H PRN #1 mdi PRN Reason: Sob/Wheezing Benzonatate CAP* [Tessalon 100 MG CAP*] 100 mg PO TID PRN #21 cap PRN Reason: cough Levofloxacin TAB* [Levaquin TAB*] 750 mg PO DAILY #5 tab Patient Education Materials: Community Acquired Pneumonia (DC) Forms: *Work Release Referrals: Joann Boo MD [Primary Care Provider] - Additional Instructions: If you develop a fever, shortness of breath, chest pain, new or worsening symptoms - please call your PCP or go to the ED. 1) Please schedule a follow up with your primary doctor for a chest x-ray recheck in 4 weeks - Billing Disposition and Condition Condition: STABLE Disposition: Home
[2017-09-24] MEDS ORDERED: Albuterol/Ipratropium NEB.SOL* Albuterol 2.5 MG/Ipratropium 0.5 MG 3 ML INH ONE (13:01)
--- NOTE | 2017-09-24 13:26 | RAD ---
INDICATION: Cough. COMPARISON: Correlation is made with a prior study from June 27, 2003. TECHNIQUE: Dual-energy PA and lateral views of the chest were obtained. FINDINGS: The heart is within normal limits in size. Mediastinal and hilar contours appear within normal limits. There is a nodular infiltrate present in the right middle lobe. No pleural effusion is seen. IMPRESSION: NODULAR RIGHT MIDDLE LOBE INFILTRATE, RECOMMEND FOLLOW-UP CHEST X-RAYS TO RESOLUTION.
[2017-09-24 14:05] VITALS: BP 101/55
== END 2017-09-24 13:50 | disposition home or self-care (01) ==
LOC: UCEAST 12:36
DX: J18.9 Pneumonia, unspecified organism (principal); Z88.5 Allergy status to narcotic agent; Z88.0 Allergy status to penicillin; Z88.2 Allergy status to sulfonamides; Z80.3 Family history of malignant neoplasm of breast; Z82.5 Family history of asthma and other chronic lower respiratory diseases; Z82.49 Family history of ischemic heart disease and other diseases of the circulatory system
CPT/HCPCS: 71046; 99212; A9270-GY; G0463

== ENCOUNTER 2018-01-05 11:04 | Inpatient (IN) | payer MEDICARE ==
--- NOTE | 2017-12-29 17:38 | HP ---
AMENDED REPORT NOW INCLUDES COSIGNER DESIGNATION CC: Dr. Joann Galicia * PREOPERATIVE HISTORY AND PHYSICAL: DATE OF ADMISSION: DATE OF PREOPERATIVE HISTORY AND PHYSICAL EXAMINATION: 12/29/17. This patient is scheduled for AA admission by Dr. Valencia on 01/05/18. ATTENDING PHYSICIAN: Dr. Teo Valencia * (dictated by Niyah Arita, ZENON). CHIEF COMPLAINT: Right lower quadrant abdominal pain. HISTORY OF PRESENT ILLNESS: The patient is a 67-year-old female, known to Dr. Valencia, status post laparoscopic converted to open repair of internal hernia, June 2016; she is also status post laparoscopic gastric bypass in 2003. She had been doing well except for the last 6 months and has had pain similar to when she had an internal hernia. The pain occurs suddenly and it is associated with nausea and dry heaves. Episodes can last from 15 minutes to an hour and then generally subside when she lays down to rest. She has also noted change in her bowel habits with intermittent episodes of diarrhea. She saw her primary care provider, Dr. Galicia, for evaluation and was sent for a CT of the abdomen and pelvis, which was reviewed by Dr. 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 Her last episode was approximately 1 month ago, but she is worried because of the unpredictable nature of these attacks of pain. She underwent routine colonoscopy by Dr. Rossi in 2014, which was unremarkable. Dr. Valencia examined the patient and reviewed the CAT scan images from [facility] on 12/08/17. 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 Given her risk for additional complications, Dr. Valencia has recommended surgical treatment with laparoscopic-assisted partial colectomy. Dr. Valencia discussed the nature of the surgical procedure, the relevant risks and benefits, the typical hospitalization, and postoperative recovery. The patient has had a chance to ask questions and stated that she understands the information and is satisfied with the answers given to her questions. She will sign surgical consent on the day of surgery. She was given a bowel cleansing prep consisting of clear liquids, Colyte laxative, neomycin, and metronidazole tablets to start on the day before surgery and continue on the morning of surgery. She received written as well as verbal instructions in the bowel cleansing prep. 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 PAST SURGICAL HISTORY: Exploratory laparotomy June 2016 for reduction repair of an internal hernia with cecal pexy; laparoscopic Zandra-en-Y gastric bypass, 2003; open cholecystectomy; appendectomy; hysterectomy; and tonsillectomy. MEDICATIONS: 1. Meloxicam 15 mg p.o. daily, typically she takes this at 3:30 in the morning when she gets up for work. 2. Acetaminophen 500 mg 2 tablets daily at 3:30 a.m. 3. Bupropion HCL extended release 300 mg 1 tablet daily at 3:30 a.m. ALLERGIES: 1. PENICILLIN caused hives and difficulty breathing. 2. SULFA ANTIBIOTICS caused an unspecified reaction over 50 years ago. 3. DILAUDID causes agitation and confusion. FAMILY HISTORY: No known anesthesia complications, bleeding tendencies, or clotting disorders. No family history of colon cancer; mother had breast cancer. SOCIAL HISTORY: She is ; she works full-time assembling [employer]; she is a nonsmoker and denies the use of alcohol or other substances. REVIEW OF SYSTEMS: Constitutional: No fevers, chills, excessive fatigue, or weight loss. Endocrine: No thyroid disease; she does have episodes of hypoglycemia occasionally with symptoms of shoulder pain, nausea, and tremors, and she does occasionally check her fingerstick blood sugar during these episodes. Hematologic: No easy bruising or bleeding. No previous blood transfusions. Respiratory: No dyspnea on exertion. No chronic cough. Recent chest x-ray confirmed that previously diagnosed pneumonia has resolved. Cardiovascular: No anginal chest pain or palpitations. Gastrointestinal: As described in history of present illness. Genitourinary: No dysuria. Musculoskeletal: Osteoarthritis primarily in her hands. Integumentary: No chronic rashes or skin changes. Neurologic: No headache or blurred vision. No areas of focal weakness or numbness. General: No history of deep vein thrombosis or pulmonary embolism. No previous anesthesia complications. Of note, she discussed the new onset of edema in her lower extremities, left greater than right with her primary care provider and was sent for venous Doppler study, which was negative for deep vein thrombosis bilaterally. PHYSICAL EXAMINATION GENERAL SURVEY: The patient is a 67-year-old female, well-developed, well- nourished, in no acute distress. VITAL SIGNS: Height 61 inches, weight 135 pounds, body mass index 25.5. Blood pressure 98/60, pulse 78 and regular, respiratory rate 18, temperature 97.6 tympanic. HEENT: Benign. NECK: Supple. No cervical lymphadenopathy, no supraclavicular lymphadenopathy. LUNGS: Breath sounds essentially clear in the anterior aspect; the right lung field is clear throughout and there were a few basilar crackles in the left lung. HEART: Regular rate and rhythm. No murmurs or rubs appreciated. ABDOMEN: Active bowel sounds. Well-healed surgical scars including right subcostal, right paramedian, and midline; no palpable masses or hernias. No organomegaly appreciated. No abdominal tenderness, nondistended. PELVIC: Exam deferred. RECTAL: Exam deferred. EXTREMITIES: Lower extremities with mild edema, left greater than right and there is 1+ pitting on the left. No skin ulcerations. No calf tenderness. She moves all 4 extremities well and gait is steady. NEUROLOGIC: Alert and oriented x3. SKIN: Warm, dry, intact. IMPRESSION: Cecal volvulus. PLAN: AA admission to Dr. Valencia' service on 01/05/18 for a laparoscopic- assisted partial colectomy; the patient was instructed in a bowel cleansing prep consisting of clear liquids, Colyte laxatives, neomycin, and metronidazole tablets. EVELYN ARITA NP [id number]/[facility] #: [id number] LUDIVINA
[~2018-01-05 11:04] MED LIST changes: +Buffered Lidocaine 0.9% SYRIN* 5 ML/SYR SYRINGE INTRADERM ONE; -Bupivacaine 0.5% W/EPI SDV* 30 ML VIAL ONE; -Clindamycin 900 MG IVPREMIX(* 900 MG/50 ML SDV IV ONE; +Dexamethasone IV* 4 MG/ML 1 ML (4 MG) IV SLOW PU ONE; -Dexamethasone IV* 4 MG/ML 1 ML (4 MG) ONE; +Famotidine IV* 10 MG/ML 2 ML (20 mg) IV ONE; +Gentamicin ADULT (*) 240 MG in NS 0.9% 100 ML* 100 ML IVPB SCH; -Lidocaine 2% PF* 5 ML VIAL ONE; -Ondansetron INJ* 2 MG/ML VIAL ONE; -Propofol* 10 MG/ML 20 ML BTL IV PUSH ONE; -Scopolamine 1.5 mg* PATCH ONE; -Succinylcholine* 20 MG/ML 10 ML VIAL ONE; -fentaNYL* 50 MCG/ML 2 ML VIAL (100 MCG VIAL) ONE
[2018-01-05] MEDS ORDERED: Clindamycin 900 MG/D5W BAG(*) 900 MG/50 ML BAG IVPB ONE (11:06)
[2018-01-05] MEDS ORDERED: Buffered Lidocaine 0.9% SYRIN* 5 ML/SYR SYRINGE ONE (11:06)
[2018-01-05] MEDS ORDERED: Dexamethasone IV* 4 MG/ML 1 ML (4 MG) ONE (11:06)
[2018-01-05] MEDS ORDERED: Famotidine IV* 10 MG/ML 2 ML (20 mg) ONE (11:06)
[2018-01-05] MEDS ORDERED: fentaNYL* 50 MCG/ML 5 ML VIAL (250 MCG VIAL) ONE (11:40)
[2018-01-05] MEDS ORDERED: Rocuronium* 10 MG/ML VIAL ONE (11:40)
[2018-01-05] MEDS ORDERED: Ondansetron INJ* 2 MG/ML VIAL ONE (11:40)
[2018-01-05] MEDS ORDERED: Propofol* 10 MG/ML 20 ML BTL IV PUSH ONE (11:40)
[2018-01-05] MEDS ORDERED: Midazolam* 1 MG/ML 2 ML VIAL (2 MG) ONE (11:40)
[2018-01-05] MEDS ORDERED: Lidocaine 2% PF * 5 ML VIAL ONE (11:41)
[2018-01-05] MEDS ORDERED: Heparin VIAL(*) 5000 UNITS/ML VIAL (FIVE THOUSAND) ONE (11:44)
[2018-01-05] MEDS ORDERED: Bupivacaine 0.25% SDV* 30 ML ONE (11:59)
[2018-01-05] MEDS ORDERED: Sugammadex * 200 MG/2 ML VIAL IV PUSH ONE (13:06)
[2018-01-05] MEDS ORDERED: Glycopyrrolate IV* 0.2 MG/ML 1 ML VIAL ONE (14:47)
[2018-01-05] MEDS ORDERED: fentaNYL* 50 MCG/ML 2 ML VIAL (100 MCG VIAL) ONE ×2 (14:52→16:29)
[2018-01-05] MEDS ORDERED: Naloxone* 0.4 MG/ML 1 ML VIAL IV PRN (15:22)
[2018-01-05] MEDS ORDERED: Ondansetron INJ* 2 MG/ML VIAL IV PRN (15:22)
[2018-01-05] MEDS ORDERED: fentaNYL* 50 MCG/ML 2 ML VIAL (100 MCG VIAL) IV PRN (15:22)
[2018-01-05] MEDS ORDERED: Scopolamine 1.5 mg* PATCH TRANSDERM PRN (15:22)
[2018-01-05] MEDS ORDERED: HYDROmorphone INJ1* 1 MG/ML SYRINGE IV PRN (15:22)
[2018-01-05] MEDS ORDERED: DiMENhydriNATE IV* 50 MG/ML VIAL IV PUSH PRN (15:22)
--- NOTE | 2018-01-05 15:54 | OP ---
Operative Report - Blank - Operative Report Date of Operation: 01/05/18 Note: Brief Operative Note Preop Dx: cecal volvulus Postop Dx: same Procedure: laparoscopy w/ SILVIA, mobilization of Right colon; laparotomy; Right colectomy w/ ileocolonic anastomosis Anesthesia: GET Surgeon: Annie Engraver Jewelry: CRISTOFER Lozano Fluids: 2500 ml crystalloid EBL: 150 ml Specimen: right colon Drains: none Findings: dictated
[2018-01-05] MEDS ORDERED: Albuterol HFA INHALER* 8 gm MDI INH PRN (16:05)
[2018-01-05] MEDS ORDERED: Ondansetron ODT TAB* 4 MG SL PRN (16:11)
[2018-01-05] MEDS ORDERED: Acetaminophen TAB* 325 MG PO PRN (16:12)
[2018-01-05] MEDS ORDERED: Morphine INJ* 2 MG/ML 1 ML SYRINGE (TWO MG - NEW SYRINGE VERSION) IV PRN ×2 (16:13)
[2018-01-05] MEDS ORDERED: Morphine VIAL* 4 MG/ML VIAL (1 ml vial) IV ONE (18:07)
[2018-01-06] MEDS: Ketorolac INJ* 15 MG/ML 1 ML VIAL IV PUSH PRN ×2 (03:14→15:39)
[2018-01-06] MEDS: BuPROPion XL* 300 MG TAB.XL PO SCH (06:11)
[2018-01-06 06:17] LABS: ABS Basophils 0 10^3/ul (0-0.2); ABS Eosinophils 0 10^3/ul (0-0.6); ABS Lymphocytes 1.4 10^3/ul (1.0-4.8); ABS Monocytes 0.9 10^3/ul (0-0.8); ABS Neutrophils 12.9 10^3/ul (1.5-7.7); ABS Nucleated RBC 0 10^3/ul; Eosinophil % 0 % (0-6); Hematocrit 32 % (35-47); Hemoglobin 10.2 g/dl (12.0-16.0); Lymphocyte % 9.2 % (25-47); Mean Corpuscular HGB Conc 32 g/dl (31-36); Mean Corpuscular Hemoglobin 25 pg (27-31); Mean Corpuscular Volume 80 fL (80-97); Nucleated Red Blood Cells % 0; Platelet Count 251 10^3/ul (150-450); Red Blood Count 4.05 10^6/ul (4.00-5.40); Red Cell Distribution Width 16 % (10.5-15); White Blood Count 15.2 10^3/ul (3.5-10.8)
--- NOTE | 2018-01-06 08:23 | OP ---
CC: Dr. Joann Boo * DATE OF OPERATION: 01/05/18 - ROOM #349 DATE OF : 46 SURGEON: Teo Valencia MD STAFF NURSE MIDWIFE: CRISTOFER Smith ANESTHESIOLOGIST: Jaime Crooks MD ANESTHESIA: General endotracheal. PRE-OP DIAGNOSIS: Cecal volvulus. POST-OP DIAGNOSIS: Cecal volvulus. OPERATIVE PROCEDURE: Laparoscopy with lysis of adhesions, mobilization of right colon, laparotomy, right colectomy with ileal colonic anastomosis. ESTIMATED BLOOD LOSS: 150 mL. IV FLUIDS: 2.5 L of crystalloid. SPECIMEN: Right colon. DRAINS: None. COMPLICATIONS: None. COUNTS: The instrument, needle, and sponge counts were correct. DESCRIPTION OF PROCEDURE: The patient was brought to the operating room, placed on the table supine. Sequential compression devices were placed on both lower extremities and general anesthesia was administered. The patient had a Eason catheter was placed. She was positioned and padded appropriately. She was prepped and draped in the usual sterile fashion. Time-out was performed. Local anesthetic was infiltrated into the skin and soft tissue prior to making each incision. Entry to the abdomen was through an infraumbilical incision using an open technique. She has a previous vertical midline scar. After accessing the peritoneal cavity, a 12-mm trocar was placed and carbon dioxide was insufflated to a pressure of 15 mmHg. Laparoscope was introduced and there were noted to be adhesions in the omentum in the midline. A 5-mm trocar was placed in the suprapubic midline and also in the left lower quadrant and also in the left upper quadrant. Dissection proceeded with mobilization of the omentum off the anterior abdominal wall using a combination of blunt dissection techniques, finger dissection, and the LigaSure. After freeing the omentum, the cecum was identified. Previous sites of cecopexy were identified. These appeared to have failed. Adhesions to the right side of the peritoneum were taken down using a sharp dissection and LigaSure and the right colon was mobilized using the LigaSure. The dissection proceeded up to the right branch of the middle colic artery, which was noted at the hepatic flexure. The small bowel at this point was noted to be and it was not possible to unwind it laparoscopically, and therefore, decision was made to create the laparotomy at this point. Laparotomy was created through a midline scar from previous surgery. The bowel was eviscerated. The orientation of the bowel was confirmed and then there was noted to be bleeding from the trocar site in the left lower quadrant. This appeared to be from the inferior epigastric vessel and this was oversewn with 2- 0 Vicryl in [id number] fashion. Subsequently, the right colectomy was performed. The proximal and distal margin of resection were identified and the mesentery between the two was scored and divided using a combination of LigaSure as well as divided between clamps and ligating with 2-0 absorbable ties of suture ligatures on larger vessels. Subsequently, an end-to-side ileocolic anastomosis was created and completed with a second firing of the FIDEL 80 stapler using a Gus technique. The specimen was handed off. The anastomosis was inspected and appeared to be widely patent. A single suture of 3-0 silk was placed at the crotch to reinforce it and was oversewn with a 3-0 PDS. The mesenteric defect was closed with interrupted 3-0 silk. Copious lavage of the abdomen was performed. Hemostasis was assured. Lastly, some pexing sutures of the remaining colon to the right lateral wall were performed with 3-0 silks. The abdomen was copiously lavaged and then closed in the midline with #1 Vicryl. The skin incisions were all closed with reji and dressings were applied. The patient tolerated the procedure well and was extubated and transferred to Recovery in stable condition. [id number]/[facility] #: [id number] MTDD
--- NOTE | 2018-01-06 09:18 | PN ---
Progress Note - Progress Note Date of Service: 01/06/18 SOAP: Subjective: Pain well controlled. Wants food. Objective: Vital Signs Temp 99.0 F 01/06/18 07:36 Pulse 67 01/06/18 07:36 Resp 16 01/06/18 08:00 BP 107/52 01/06/18 07:36 Pulse Ox 100 01/06/18 08:00 Gen: NAD Abd: ND, soft, min tender; dressings c/d/i. Intake & Output 01/05/18 01/06/18 01/06/18 18:59 06:59 18:59 Intake Total 2850 1332 Output Total 525 690 Balance 2325 642 Weight 132 lb Intake: IV Fluids 2850 942 CLINDAMYCIN 900MG 50ML 50 GENTAMICIN 240MG 100ML 100 LR 2700 942 Oral 390 Output: Urine 340 Orellana 375 350 Estimated Blood Loss 150 Laboratory Results - last 24 hr 01/05/18 01/06/18 01/06/18 11:48 05:53 05:53 WBC 15.2 H RBC 4.05 Hgb 10.2 L Hct 32 L MCV 80 MCH 25 L MCHC 32 RDW 16 H Plt Count 251 MPV 8.0 Neut % (Auto) 84.5 H Lymph % (Auto) 9.2 L Forest % (Auto) 6.2 Eos % (Auto) 0 Baso % (Auto) 0.1 Absolute Neuts (auto) 12.9 H Absolute Lymphs (auto) 1.4 Absolute Monos (auto) 0.9 H Absolute Eos (auto) 0 Absolute Basos (auto) 0 Absolute Nucleated RBC 0 Nucleated RBC % 0 Sodium 138 Potassium 3.7 Chloride 105 Carbon Dioxide 30 Anion Gap 3 BUN 9 Creatinine 0.70 Est GFR ( Amer) 100.4 Est GFR (Non-Af Amer) 83.0 BUN/Creatinine Ratio 12.9 Glucose 109 H POC Glucose (mg/dL) 107 H Calcium 7.9 L Assessment: POD#1 s/p lap SILVIA/R colectomy;pexy. Dong well. Plan: Clears. D/c orellana. Amb.
[2018-01-07] MEDS: Ketorolac INJ* 15 MG/ML 1 ML VIAL IV PUSH PRN (02:02)
[2018-01-07] MEDS: BuPROPion XL* 300 MG TAB.XL PO SCH (06:15)
--- NOTE | 2018-01-07 13:17 | PN ---
Progress Note - Progress Note Date of Service: 01/07/18 SOAP: Subjective: No flatus or BM. Pain controlled. Mary Lou clears, would like food. Objective: Vital Signs Temp 98.8 F 01/07/18 07:30 Pulse 66 01/07/18 07:30 Resp 16 01/07/18 07:33 BP 108/48 01/07/18 07:30 Pulse Ox 96 01/07/18 07:33 Gen: NAD Abd: incisions c/d/i; no erythema; softly distended; tender at incisions. Ext: SCDs in place Intake & Output 01/06/18 01/07/18 01/07/18 18:59 06:59 18:59 Intake Total 540 150 120 Output Total 1150 1300 Balance -610 -1150 120 Intake: Oral 540 150 120 Output: Urine 200 1300 Eason 950 Other: Estimated Void Medium # Voids 1 Assessment: POD#2 s/p lap assist R colon/pexy for cecal vovulus. Plan: Full liquids. Amb. Await GI fct.
[2018-01-08] MEDS: BuPROPion XL* 300 MG TAB.XL PO SCH (05:55)
--- NOTE | 2018-01-08 10:13 | PN ---
Progress Note - Progress Note Date of Service: 01/08/18 Note: S: patient seen with and examined by Dr. Valencia. Doing well. Mary Lou full liqs; would like to advance diet. No sig pain. Has had mult BM's; passing flatus. O: Vital Signs - 8 hr 01/08/18 03:34 Temperature 98.1 F Pulse Rate 70 Respiratory 16 Rate Blood Pressure 114/65 (mmHg) O2 Sat by Pulse 94 Oximetry Intake and Output Last 24 Hours 01/06/18 01/07/18 01/08/18 01/09/18 06:59 06:59 06:59 06:59 Intake Total 4182 690 900 Output Total 1215 2450 3250 Balance 2967 -1760 -2350 Weight 132 lb Intake: IV Fluids 3792 CLINDAMYCIN 900MG 50ML 50 GENTAMICIN 240MG 100ML 100 LR 3642 Oral 390 690 900 Output: Urine 340 1500 3250 Eason 725 950 Estimated Blood Loss 150 Other: Estimated Void Medium # Bowel Movements 1 Estimated Stool Amount Small # Voids 1 Gen: appears well; NAD Abd: midline and lap sites clean and dry; small amts of dried blood. Soft, no sig tenderness. A: s/p lap assisted Right colectomy, doing well P: home today; instructions reviewed; office f/u 01/14.
[2018-01-08 11:34] VITALS: BP 118/70
--- NOTE | 2018-01-09 03:44 | DS ---
CC: Dr. Joann Galicia * DISCHARGE SUMMARY: DATE OF ADMISSION: 01/05/18 DATE OF DISCHARGE: 01/08/18 ATTENDING SURGEON: Dr. Teo Valencia.* (DICTATED BY CRISTOFER YATES) HOSPITAL COURSE: Please refer to admission history and physical and operative note for details. The patient was taken to the operating room on 01/05/18, at which time she underwent laparoscopic-assisted right colectomy with Dr. Valencia. Her postoperative course has been uneventful with minimal a postoperative pain and relatively a quick resumption of bowel function. Her diet has been advanced over the past 48 hours and she has had a couple of bowel movements as well as passing flatus. PHYSICAL EXAMINATION: As of the morning of discharge, temperature 98.1, blood pressure 114/65, pulse 70, respirations 16, room air saturation 94% to 96%. General: Well nourished and in no acute distress. Abdomen: Laparoscopic and midline incisions healing well without evidence of infection. Abdomen soft with no significant tenderness. IMPRESSION: Status post laparoscopic-assisted right colectomy, doing well. PLAN: Home today. Instructions were reviewed regarding wound care, diet, and activity. She has a followup with our office on 01/14/18. She will resume all of her usual home meds. CRISTOFER YATES [id number]/[facility] #: [id number] MTDD
== END 2018-01-08 12:00 | disposition home or self-care (01) | DRG 331 ==
LOC: AA 11:04 → SSU 16:00
PROVIDERS: ADMIT Surgery; ATTEND Surgery
PROC: 0DTF0ZZ Resection of Right Large Intestine, Open Approach (ICD-10-PCS; 2018-01-05)
PROC: 0DNU4ZZ Release Omentum, Percutaneous Endoscopic Approach (ICD-10-PCS; principal; 2018-01-05 12:45)
DX: K56.2 Volvulus (principal); F32.9 Major depressive disorder, single episode, unspecified; F41.9 Anxiety disorder, unspecified; K66.0 Peritoneal adhesions (postprocedural) (postinfection); M19.042 Primary osteoarthritis, left hand; M19.041 Primary osteoarthritis, right hand; Z90.49 Acquired absence of other specified parts of digestive tract; Z98.84 Bariatric surgery status; Z88.6 Allergy status to analgesic agent; Z88.0 Allergy status to penicillin; Z88.2 Allergy status to sulfonamides; Z53.31 Laparoscopic surgical procedure converted to open procedure; Z87.01 Personal history of pneumonia (recurrent); Z90.710 Acquired absence of both cervix and uterus
CPT/HCPCS: 36415; 80048; 85025; 88307; A9270-GY; J1100; J1580; J1644; J1885; J2250; J2270; J2405; J2704; J3010